=== PATIENT | female | born 1960 | race Caucasian/White ===

== ENCOUNTER 2023-05-15 06:21 | Observation (INO) ==
[~2023-05-15 06:21] MED LIST: Buffered Lidocaine 1% SYRIN 1 ml INTRADERM ONE; Dexamethasone IV 4 MG/ML VIAL 1 ml VIAL ONE; Famotidine IV 10 MG/ML 2 ml VIAL (20 mg) IV ONE; Lactated Ringers 1000 ml BAG 1,000 ML IV SCH; Lidocaine 2% PF 5 ML VIAL ONE; Ondansetron 4 mg VIAL 2 MG/ML 2 ml VIAL ONE; Propofol 10 MG/ML 20 ML BTL ONE
[2023-05-15] MEDS ORDERED: ceFAZolin 2 GM in NS PREMIX 2 GM/100 ML BAG IVPB ONE (06:50)
[2023-05-15] MEDS ORDERED: Famotidine IV 10 MG/ML 2 ml VIAL (20 mg) ONE (06:51)
[2023-05-15 07:49] LABS: Rapid COVID-19 Molecular Undetected (Undetected)
[2023-05-15] MEDS ORDERED: Propofol 10 MG/ML 20 ML BTL ONE (09:04)
[2023-05-15] MEDS ORDERED: Midazolam 2 mg/2 ml VIAL 1 mg/ml 2 ml VIAL (2 mg) ONE (09:05)
[2023-05-15] MEDS ORDERED: Rocuronium 50 mg VIAL 10 mg/ml 5 ml VIAL (50 mg) ONE ×2 (09:05→10:39)
[2023-05-15] MEDS ORDERED: fentaNYL 250 mcg/5 ml 50 MCG/ML 5 ml VIAL (250 MCG) ONE (09:06)
[2023-05-15] MEDS ORDERED: ROPIVACAINE 5 MG/ML 30 ML BTL (0.5%) ONE (09:11)
[2023-05-15] MEDS ORDERED: Acetaminophen IV 1 GM/100ML 1,000 MG/100 ML BAG IV ONE (10:30)
[2023-05-15] MEDS ORDERED: Morphine 2 MG/ML SYRINGE IV PRN (10:42)
[2023-05-15] MEDS ORDERED: Ondansetron ODT 4 mg TAB 4 MG TAB PO PRN (10:42)
[2023-05-15] MEDS ORDERED: Lactulose 30 ml UDC PO PRN (10:42)
[2023-05-15] MEDS ORDERED: Ondansetron 4 mg VIAL 2 MG/ML 2 ml VIAL IV PRN (10:42)
[2023-05-15] MEDS ORDERED: Magnesium Hydroxide LIQ 30 ML UDC PO PRN (10:42)
[2023-05-15] MEDS ORDERED: HYDROmorphone 0.5 MG/0.5 ML SYRINGE ONE ×2 (10:44→11:03)
[2023-05-15] MEDS ORDERED: Naloxone 0.4 mg VIAL 0.4 mg/ml 1 ml VIAL IV PRN (11:21)
[2023-05-15] MEDS ORDERED: fentaNYL 100 mcg/2 ml 50 MCG/ML VIAL ONE ×2 (12:48→13:17)
[2023-05-15] MEDS: fentaNYL 100 mcg/2 ml 50 MCG/ML VIAL IV PRN ×4 (12:49→13:36)
[2023-05-15] MEDS ORDERED: oxyCODONE/Acetamin 5/325 mg TAB ONE (13:17)
[2023-05-15] MEDS ORDERED: HYDROcodone/ACETAMIN 5/325 mg TAB ONE (13:19)
[2023-05-15] MEDS: HYDROcodone/ACETAMIN 5/325 mg TAB PO PRN ×2 (13:20→20:41)
[2023-05-15] MEDS: HYDROmorphone 1 MG/1 ML SYRINGE IV PRN ×2 (13:38→13:39)
[2023-05-15] MEDS ORDERED: HYDROmorphone 1 MG/1 ML SYRINGE ONE (13:38)
[2023-05-15] MEDS: Lactated Ringers 1000 ml BAG 1,000 ML IV SCH (14:15)
[2023-05-15] MEDS: ceFAZolin 1 GM ADVAN 1 GM in NS 0.9% 50 ML 50 ML IVPB SCH (17:24)
[2023-05-15] MEDS: Magnesium Hydroxide LIQ 30 ML UDC PO SCH (22:05)
[2023-05-16] MEDS: Lactated Ringers 1000 ml BAG 1,000 ML IV SCH (01:02)
[2023-05-16] MEDS: HYDROcodone/ACETAMIN 5/325 mg TAB PO PRN ×2 (01:02→08:10)
[2023-05-16] MEDS: ceFAZolin 1 GM ADVAN 1 GM in NS 0.9% 50 ML 50 ML IVPB SCH ×2 (02:36→10:20)
[2023-05-16 07:46] LABS: Hematocrit 30.8 % (35-45); Hemoglobin 10.4 g/dL (11.5-14.3); Mean Platelet Volume 7.7 fL (7.5-11.2); Platelet Count 230 10^3/uL (150-450)
[2023-05-16 07:49] LABS: Calcium 8.7 mg/dL (8.6-10.3); Creatinine, Serum 0.72 mg/dL (0.51-0.95); Potassium 3.9 mmol/L (3.5-5.0); eGFR CKD-EPI 94.5 (>60)
[2023-05-16] MEDS: Magnesium Hydroxide LIQ 30 ML UDC PO SCH (08:09)
[2023-05-16] MEDS ORDERED: Venlafaxine XR 75 mg PO SCH (09:00)
[2023-05-16] MEDS ORDERED: Vitamin THERAPEUTIC TAB PO SCH (09:00)
[2023-05-16] MEDS ORDERED: HYDROcodone/Acetamin 10/325 TAB (NF) PO PRN (11:33)
[2023-05-16 14:39] VITALS: BP 118/62
== END 2023-05-16 17:56 | disposition home or self-care (01) ==
LOC: INTOOBSV 06:21 → AA 06:21 → SSU 10:42
PROVIDERS: ADMIT Orthopaedic Surgery Adult Reconstructive Orthopaedic Surgery; ATTEND Orthopaedic Surgery Adult Reconstructive Orthopaedic Surgery

== ENCOUNTER 2023-06-14 11:11 | Inpatient (IN) ==
[2023-06-14] MEDS ORDERED: cefTRIAXone 2 gm/50 mL D5W 2 GM/50 ML BAG IV ONE (11:32)
[2023-06-14] MEDS ORDERED: Vancomycin 1,500 MG in NS 0.9% 250 ml 250 ML IVPB ONE (11:32)
[2023-06-14] MEDS ORDERED: Magnesium Hydroxide LIQ 30 ML UDC PO PRN (12:39)
[2023-06-14] MEDS ORDERED: Ondansetron ODT 4 mg TAB 4 MG TAB PO PRN (12:39)
[2023-06-14] MEDS ORDERED: Lactulose 30 ml UDC PO PRN (12:39)
[2023-06-14 12:43] LABS: ABS Eosinophils 0.1 10^3/uL (0.0-0.5); ABS Lymphocytes 1.7 10^3/uL (1.0-4.8); ABS Monocytes 0.6 10^3/uL (0.0-0.9); ABS Nucleated RBC 0.01 10^3/ul; Eosinophil % 1.5 %; Hematocrit 33.7 % (35-45); Hemoglobin 11.2 g/dL (11.5-14.3); Lymphocyte % 27.1 %; Mean Corpuscular Hemoglobin 29.1 pg (27-33); Mean Corpuscular Hgb Conc 33.3 g/dL (31-36); Mean Corpuscular Volume 87.5 fL (80-97); Mean Platelet Volume 7.3 fL (7.5-11.2); Nucleated Red Blood Cells % 0.1 /100 WBC (0.0-0.4); Platelet Count 314 10^3/uL (150-450); Red Blood Count 3.86 10^6/uL (3.63-4.92); Red Cell Distribution Width 14.6 % (12-17); White Blood Count 6.4 10^3/uL (3.8-11.8)
[2023-06-14 12:58] LABS: Activated Partial Thrombo Time 35.7 seconds (26.0-38.0); INR 1.14 (0.88-1.18)
[2023-06-14] MEDS ORDERED: Vancomycin per Pharmacy 1 EA NOTE FOLLOW UP SCH (13:00)
[2023-06-14] MEDS ORDERED: Lactated Ringers 1000 ml BAG 1,000 ML IV SCH (13:00)
[2023-06-14] MEDS: Morphine 2 MG/ML SYRINGE IV PRN (13:11)
[2023-06-14] MEDS: Ondansetron 4 mg VIAL 2 MG/ML 2 ml VIAL IV PRN (13:13)
[2023-06-14 13:19] LABS: Albumin 3.9 g/dL (3.2-5.2); Albumin/Globulin Ratio 1.4 (1-3); C Reactive Protein 22.16 mg/L (<8.01); Calcium 9.4 mg/dL (8.6-10.3); Creatinine, Serum 0.81 mg/dL (0.51-0.95); Globulin 2.7 g/dL (2-4); Potassium 4.4 mmol/L (3.5-5.0); Total Bilirubin 0.5 mg/dL (0.2-1.0); Total Protein 6.6 g/dL (6.4-8.9)
[2023-06-14] MEDS ORDERED: Vancomycin 1,750 MG in NS 0.9% 500 ml BAG 500 ML IVPB ONE (13:30)
[2023-06-14] MEDS ORDERED: Rocuronium 50 mg VIAL 10 mg/ml 5 ml VIAL (50 mg) ONE ×2 (15:09→17:42)
[2023-06-14] MEDS ORDERED: Midazolam 2 mg/2 ml VIAL 1 mg/ml 2 ml VIAL (2 mg) ONE (15:09)
[2023-06-14] MEDS ORDERED: Sevoflurane BOTTLE ONE (15:09)
[2023-06-14] MEDS ORDERED: fentaNYL 250 mcg/5 ml 50 MCG/ML 5 ml VIAL (250 MCG) ONE (15:09)
[2023-06-14] MEDS ORDERED: Propofol 10 MG/ML 20 ML BTL ONE ×2 (15:09→17:42)
[2023-06-14] MEDS ORDERED: Lidocaine 2% PF 5 ML VIAL ONE ×2 (15:09→17:42)
[2023-06-14] MEDS ORDERED: HYDROmorphone 1 MG/1 ML SYRINGE IV PRN ×2 (15:19→20:32)
[2023-06-14] MEDS ORDERED: Naloxone 0.4 mg VIAL 0.4 mg/ml 1 ml VIAL IV PRN ×3 (15:19→20:32)
[2023-06-14] MEDS ORDERED: Ondansetron 4 mg VIAL 2 MG/ML 2 ml VIAL IV PRN ×2 (15:19→20:32)
[2023-06-14] MEDS ORDERED: Acetaminophen IV 1 GM/100ML 1,000 MG/100 ML BAG IV PRN ×2 (15:19→20:31)
[2023-06-14 16:24] LABS: Erythrocyte Sed Rate 42 mm/Hr (0-29)
[2023-06-14] MEDS ORDERED: fentaNYL 100 mcg/2 ml 50 MCG/ML VIAL ONE ×6 (16:27→21:39)
[2023-06-14] MEDS: fentaNYL 100 mcg/2 ml 50 MCG/ML VIAL IV PRN ×7 (16:29→21:42)
[2023-06-14] MEDS ORDERED: Glycopyrrolate IV 0.2 MG/ML 1 ML VIAL ONE ×2 (18:11→18:28)
[2023-06-14] MEDS ORDERED: Phenylephrine 40 mcg/mL 10mL (400mcg) SYRINGE ONE (18:11)
[2023-06-14] MEDS ORDERED: Phenylephrine IV 10 MG/ML 1 ml VIAL ONE (18:14)
[2023-06-14] MEDS ORDERED: Ondansetron 4 mg VIAL 2 MG/ML 2 ml VIAL ONE (18:51)
[2023-06-14] MEDS ORDERED: ROPIVACAINE 5 MG/ML 30 ML BTL (0.5%) ONE (19:06)
[2023-06-14] MEDS ORDERED: Clotrimazole 1% CREAM 45 GM TOPICAL SCH (21:00)
[2023-06-14] MEDS ORDERED: Morphine 4 MG/ML VIAL (1 ml) ONE (21:15)
[2023-06-14] MEDS: Morphine 4 MG/ML VIAL (1 ml) IV PRN ×2 (21:16→21:28)
[2023-06-15] MEDS: HYDROcodone/ACETAMIN 5/325 mg TAB PO PRN ×5 (00:24→17:33)
[2023-06-15] MEDS: Magnesium Hydroxide LIQ 30 ML UDC PO SCH ×3 (01:19→21:49)
[2023-06-15] MEDS: Morphine 2 MG/ML SYRINGE IV PRN (01:35)
[2023-06-15] MEDS: Cefepime 2 GM in Dextrose 2 GM/50 ML BAG IV SCH ×3 (01:37→13:34)
[2023-06-15] MEDS ORDERED: Vancomycin 1,500 MG in NS 0.9% 250 ml 250 ML IVPB SCH (02:00)
[2023-06-15] MEDS: Vancomycin 1,500 MG in NS 0.9% 250 ml 250 ML IVPB SCH ×2 (02:21→14:52)
[2023-06-15] MEDS: Venlafaxine XR 75 mg PO SCH (08:52)
[2023-06-15] MEDS: Vitamin THERAPEUTIC TAB PO SCH (08:52)
[2023-06-15] MEDS: Clotrimazole 1% CREAM 30 gm TOPICAL SCH ×2 (09:11→22:01)
[2023-06-16] MEDS: Cefepime 2 GM in Dextrose 2 GM/50 ML BAG IV SCH ×2 (01:08→14:28)
[2023-06-16] MEDS: Vancomycin 1,500 MG in NS 0.9% 250 ml 250 ML IVPB SCH ×2 (01:40→16:51)
[2023-06-16] MEDS: HYDROcodone/ACETAMIN 5/325 mg TAB PO PRN ×3 (07:44→21:06)
[2023-06-16] MEDS: Vitamin THERAPEUTIC TAB PO SCH (07:45)
[2023-06-16] MEDS: Venlafaxine XR 75 mg PO SCH (07:45)
[2023-06-16] MEDS: Magnesium Hydroxide LIQ 30 ML UDC PO SCH ×2 (07:46→21:51)
[2023-06-16] MEDS: Clotrimazole 1% CREAM 30 gm TOPICAL SCH ×2 (11:33→21:06)
[2023-06-16] MEDS ORDERED: Vancomycin Trough Check NOTE FOLLOW UP ONE (13:30)
[2023-06-16 13:54] LABS: Creatinine, Serum 0.78 mg/dL (0.51-0.95); eGFR CKD-EPI 85.8 (>60)
[2023-06-16 14:14] LABS: Vancomycin Trough 16.6 mcg/mL
[2023-06-17] MEDS: Cefepime 2 GM in Dextrose 2 GM/50 ML BAG IV SCH ×2 (01:58→15:30)
[2023-06-17] MEDS: Vancomycin 1,500 MG in NS 0.9% 250 ml 250 ML IVPB SCH ×2 (02:55→16:27)
[2023-06-17] MEDS: Ondansetron 4 mg VIAL 2 MG/ML 2 ml VIAL IV PRN (10:25)
[2023-06-17] MEDS: Morphine 2 MG/ML SYRINGE IV PRN (10:25)
[2023-06-17] MEDS: Magnesium Hydroxide LIQ 30 ML UDC PO SCH ×2 (11:12→20:50)
[2023-06-17] MEDS: Venlafaxine XR 75 mg PO SCH (11:14)
[2023-06-17] MEDS: Vitamin THERAPEUTIC TAB PO SCH (11:15)
[2023-06-17] MEDS: HYDROcodone/ACETAMIN 5/325 mg TAB PO PRN ×3 (11:16→20:49)
[2023-06-17] MEDS: Clotrimazole 1% CREAM 30 gm TOPICAL SCH ×2 (11:18→20:51)
[2023-06-18] MEDS: Cefepime 2 GM in Dextrose 2 GM/50 ML BAG IV SCH ×2 (01:48→13:09)
[2023-06-18] MEDS: HYDROcodone/ACETAMIN 5/325 mg TAB PO PRN ×4 (01:53→19:40)
[2023-06-18] MEDS: Vancomycin 1,500 MG in NS 0.9% 250 ml 250 ML IVPB SCH (02:33)
[2023-06-18] MEDS: Vitamin THERAPEUTIC TAB PO SCH (08:37)
[2023-06-18] MEDS: Magnesium Hydroxide LIQ 30 ML UDC PO SCH ×2 (08:38→08:43)
[2023-06-18] MEDS: Venlafaxine XR 75 mg PO SCH (08:38)
[2023-06-18] MEDS: Clotrimazole 1% CREAM 30 gm TOPICAL SCH ×2 (08:38→21:37)
[2023-06-18] MEDS ORDERED: Magnesium Hydroxide LIQ 30 ML UDC PO PRN (10:59)
[2023-06-18] MEDS ORDERED: Zosyn per Pharmacy NOTE FOLLOW UP SCH (12:00)
[2023-06-18] MEDS ORDERED: ZOSYN 3.375 GM x ONE DOSE over 30 miuntes IV (12:00)
[2023-06-18] MEDS ORDERED: Vancomycin per Pharmacy 1 EA NOTE FOLLOW UP SCH (13:00)
[2023-06-18] MEDS ORDERED: Vancomycin Trough Check NOTE FOLLOW UP ONE (13:30)
[2023-06-18] MEDS: Linezolid 600 MG IVPREMIX(*) 600 MG/300 ML BAG IVPB SCH (13:57)
[2023-06-18 14:12] LABS: Creatinine, Serum 0.78 mg/dL (0.51-0.95); eGFR CKD-EPI 85.8 (>60)
[2023-06-18 14:42] LABS: Vancomycin Trough 19.7 mcg/mL
[2023-06-19] MEDS: HYDROcodone/ACETAMIN 5/325 mg TAB PO PRN ×2 (00:56→08:53)
[2023-06-19] MEDS: Cefepime 2 GM in Dextrose 2 GM/50 ML BAG IV SCH ×2 (01:00→12:17)
[2023-06-19] MEDS: Linezolid 600 MG IVPREMIX(*) 600 MG/300 ML BAG IVPB SCH ×2 (01:40→12:51)
[2023-06-19] MEDS: Venlafaxine XR 75 mg PO SCH (08:52)
[2023-06-19] MEDS: Vitamin THERAPEUTIC TAB PO SCH (08:53)
[2023-06-19] MEDS: Clotrimazole 1% CREAM 30 gm TOPICAL SCH (08:55)
[2023-06-19 13:44] VITALS: BP 111/60
[2023-06-19 14:40] LABS: Rapid COVID-19 Molecular Undetected (Undetected)
== END 2023-06-19 14:39 | disposition swing bed (61) | DRG 468 ==
LOC: EDACCT# → ED 11:11 → SSU 12:39 → EDHOLD 12:39 → OR 12:39 → SSU 12:40 → OR 20:31
PROVIDERS: ADMIT Orthopaedic Surgery Adult Reconstructive Orthopaedic Surgery; ATTEND Orthopaedic Surgery Adult Reconstructive Orthopaedic Surgery

== ENCOUNTER 2023-07-11 15:05 | Inpatient (IN) ==
[2023-07-11] MEDS ORDERED: HYDROcodone/ACETAMIN 5/325 mg TAB PO PRN (17:14)
[2023-07-11] MEDS ORDERED: Cefepime 2 GM in Dextrose 2 GM/50 ML BAG IV SCH (18:00)
[2023-07-11] MEDS ORDERED: Linezolid 600 MG IVPREMIX(*) 600 MG/300 ML BAG IVPB SCH (18:30)
[2023-07-11] MEDS: Clotrimazole 1% CREAM 30 gm TOPICAL SCH (20:54)
[2023-07-11] MEDS: Nystatin TOP POWDER 15 GM BTL TOPICAL SCH (20:55)
[2023-07-11] MEDS: Cefepime 2 GM in Dextrose 2 GM/50 ML BAG IV SCH (20:59)
[2023-07-11] MEDS: Linezolid 600 MG IVPREMIX(*) 600 MG/300 ML BAG IVPB SCH (21:41)
[2023-07-11] MEDS: Lactated Ringers 1000 ml BAG 1,000 ML IV SCH (23:15)
[2023-07-12] MEDS ORDERED: Magnesium Sulfate 2 gm BAG 2 GM/50 ML BAG IVPB ONE (03:02)
[2023-07-12 03:44] LABS: ABS Eosinophils 0.1 10^3/uL (0.0-0.5); ABS Lymphocytes 1.4 10^3/uL (1.0-4.8); ABS Monocytes 0.4 10^3/uL (0.0-0.9); ABS Neutrophils 1.7 10^3/uL (1.5-7.6); ABS Nucleated RBC 0.01 10^3/ul; Hematocrit 26.6 % (35-45); Lymphocyte % 38.9 %; Mean Corpuscular Hemoglobin 28.7 pg (27-33); Mean Corpuscular Hgb Conc 33.8 g/dL (31-36); Mean Platelet Volume 7.1 fL (7.5-11.2); Nucleated Red Blood Cells % 0.2 /100 WBC (0.0-0.4); Platelet Count 165 10^3/uL (150-450); Red Blood Count 3.13 10^6/uL (3.63-4.92); Red Cell Distribution Width 16.1 % (12-17); White Blood Count 3.7 10^3/uL (3.8-11.8)
[2023-07-12 03:50] LABS: INR 1.13 (0.83-1.13)
[2023-07-12 04:01] LABS: Albumin 3.5 g/dL (3.2-5.2); Albumin/Globulin Ratio 1.5 (1-3); Calcium 8.8 mg/dL (8.6-10.3); Creatinine, Serum 0.72 mg/dL (0.51-0.95); Globulin 2.3 g/dL (2-4); Magnesium 2.1 mg/dL (1.9-2.7); Potassium 3.5 mmol/L (3.5-5.0); Total Bilirubin 0.4 mg/dL (0.2-1.0); Total Protein 5.8 g/dL (6.4-8.9); eGFR CKD-EPI 94.5 (>60)
[2023-07-12] MEDS ORDERED: Potassium EFFERVES 25 meq TAB PO ONE (07:15)
[2023-07-12] MEDS: HYDROcodone/ACETAMIN 5/325 mg TAB PO PRN ×3 (07:59→18:04)
[2023-07-12] MEDS: Venlafaxine XR 75 mg PO SCH (07:59)
[2023-07-12] MEDS: Clotrimazole 1% CREAM 30 gm TOPICAL SCH ×2 (08:00→21:18)
[2023-07-12] MEDS: Nystatin TOP POWDER 15 GM BTL TOPICAL SCH ×2 (08:00→21:18)
[2023-07-12] MEDS: Cefepime 2 GM in Dextrose 2 GM/50 ML BAG IV SCH ×2 (08:07→21:23)
[2023-07-12] MEDS: Linezolid 600 MG IVPREMIX(*) 600 MG/300 ML BAG IVPB SCH ×2 (08:52→22:14)
[2023-07-12] MEDS: Potassium Chlor 20 meq TAB.ER PO SCH (08:53)
[2023-07-12] MEDS: Lactated Ringers 1000 ml BAG 1,000 ML IV SCH ×2 (10:13→18:06)
[2023-07-12 11:51] LABS: C Reactive Protein 5.89 mg/L (<8.01)
[2023-07-12 15:44] LABS: Body Fluid Appearance Bloody; Body Fluid Color Red; Body Fluid Source Synovial Fluid
[2023-07-12 16:26] LABS: Body Fluid WBC 301 /mcL
[2023-07-12 17:18] LABS: Body Fluid Mono 29 %; Body Fluid Other Cells 2; Body Fluid Total Cells Counted 200
[2023-07-12] MEDS ORDERED: HYDROcodone/ACETAMIN 5/325 mg TAB PO PRN (22:54)
[2023-07-13] MEDS: Lactated Ringers 1000 ml BAG 1,000 ML IV SCH ×2 (03:31→13:23)
[2023-07-13 06:53] LABS: Hematocrit 24.5 % (35-45); Hemoglobin 8.2 g/dL (11.5-14.3); Mean Corpuscular Hemoglobin 28.7 pg (27-33); Mean Corpuscular Hgb Conc 33.6 g/dL (31-36); Mean Corpuscular Volume 85.4 fL (80-97); Mean Platelet Volume 7.3 fL (7.5-11.2); Platelet Count 142 10^3/uL (150-450); Red Blood Count 2.87 10^6/uL (3.63-4.92); Red Cell Distribution Width 16.2 % (12-17); White Blood Count 3.3 10^3/uL (3.8-11.8)
[2023-07-13 07:08] LABS: Albumin 3.4 g/dL (3.2-5.2); Albumin/Globulin Ratio 1.5 (1-3); Creatinine, Serum 0.7 mg/dL (0.51-0.95); Globulin 2.2 g/dL (2-4); Potassium 4.2 mmol/L (3.5-5.0); Total Bilirubin 0.5 mg/dL (0.2-1.0); Total Protein 5.6 g/dL (6.4-8.9); eGFR CKD-EPI 97.7 (>60)
[2023-07-13] MEDS: Clotrimazole 1% CREAM 30 gm TOPICAL SCH ×2 (11:26→20:10)
[2023-07-13] MEDS: Nystatin TOP POWDER 15 GM BTL TOPICAL SCH ×2 (11:27→20:10)
[2023-07-13] MEDS: Potassium Chlor 20 meq TAB.ER PO SCH (11:27)
[2023-07-13] MEDS: Venlafaxine XR 75 mg PO SCH (11:27)
[2023-07-13] MEDS: Linezolid 600 MG IVPREMIX(*) 600 MG/300 ML BAG IVPB SCH ×2 (11:29→20:58)
[2023-07-13] MEDS: Cefepime 2 GM in Dextrose 2 GM/50 ML BAG IV SCH ×2 (11:29→20:07)
[2023-07-13 11:58] LABS: TSH Ultra Thyroid Stim Horm 1.87 mcIU/mL (0.34-5.60)
[2023-07-13 12:03] LABS: Free T4 0.74 ng/dL (0.61-1.12)
[2023-07-13] MEDS ORDERED: Lactated Ringers 1000 ml BAG 1,000 ML IV SCH (14:01)
[2023-07-13] MEDS: Morphine 2 MG/ML SYRINGE IV PRN (20:57)
[2023-07-14 06:52] LABS: ABS Eosinophils 0.1 10^3/uL (0.0-0.5); ABS Lymphocytes 1.1 10^3/uL (1.0-4.8); ABS Monocytes 0.4 10^3/uL (0.0-0.9); Eosinophil % 3.7 %; Hemoglobin 8.8 g/dL (11.5-14.3); Lymphocyte % 29.5 %; Mean Corpuscular Hemoglobin 28.7 pg (27-33); Mean Corpuscular Hgb Conc 33.8 g/dL (31-36); Mean Corpuscular Volume 84.8 fL (80-97); Mean Platelet Volume 7.5 fL (7.5-11.2); Nucleated Red Blood Cells % 0.1 /100 WBC (0.0-0.4); Platelet Count 136 10^3/uL (150-450); Red Blood Count 3.06 10^6/uL (3.63-4.92); Red Cell Distribution Width 16.3 % (12-17); White Blood Count 3.6 10^3/uL (3.8-11.8)
[2023-07-14 07:03] LABS: Albumin 3.5 g/dL (3.2-5.2); Albumin/Globulin Ratio 1.5 (1-3); Creatinine, Serum 0.71 mg/dL (0.51-0.95); Globulin 2.3 g/dL (2-4); Potassium 4.1 mmol/L (3.5-5.0); Total Bilirubin 0.5 mg/dL (0.2-1.0); Total Protein 5.8 g/dL (6.4-8.9); eGFR CKD-EPI 96.1 (>60)
[2023-07-14] MEDS: Morphine 2 MG/ML SYRINGE IV PRN ×2 (07:04→20:53)
[2023-07-14] MEDS: Linezolid 600 MG IVPREMIX(*) 600 MG/300 ML BAG IVPB SCH ×2 (09:25→20:54)
[2023-07-14] MEDS: Venlafaxine XR 75 mg PO SCH ×2 (09:31→11:21)
[2023-07-14] MEDS: Cefepime 2 GM in Dextrose 2 GM/50 ML BAG IV SCH ×2 (11:11→19:52)
[2023-07-14] MEDS: HYDROcodone/ACETAMIN 5/325 mg TAB PO PRN (13:47)
[2023-07-14] MEDS: Nystatin TOP POWDER 15 GM BTL TOPICAL SCH ×2 (15:21→20:04)
[2023-07-14] MEDS: Clotrimazole 1% CREAM 30 gm TOPICAL SCH ×2 (15:22→20:04)
[2023-07-15 02:11] LABS: Creatinine, Serum 0.76 mg/dL (0.51-0.95); eGFR CKD-EPI 88.5 (>60)
[2023-07-15] MEDS: Morphine 2 MG/ML SYRINGE IV PRN (03:09)
[2023-07-15 06:27] LABS: ABS Eosinophils 0.2 10^3/uL (0.0-0.5); ABS Lymphocytes 1.6 10^3/uL (1.0-4.8); ABS Monocytes 0.4 10^3/uL (0.0-0.9); ABS Neutrophils 2.2 10^3/uL (1.5-7.6); Eosinophil % 3.4 %; Hematocrit 27.4 % (35-45); Hemoglobin 9.3 g/dL (11.5-14.3); Lymphocyte % 36.1 %; Mean Corpuscular Hemoglobin 28.7 pg (27-33); Mean Corpuscular Hgb Conc 33.9 g/dL (31-36); Mean Corpuscular Volume 84.7 fL (80-97); Mean Platelet Volume 7.6 fL (7.5-11.2); Nucleated Red Blood Cells % 0.1 /100 WBC (0.0-0.4); Platelet Count 149 10^3/uL (150-450); Red Blood Count 3.24 10^6/uL (3.63-4.92); Red Cell Distribution Width 16.1 % (12-17); White Blood Count 4.5 10^3/uL (3.8-11.8)
[2023-07-15 06:54] LABS: Calcium 9.3 mg/dL (8.6-10.3); Creatinine, Serum 0.67 mg/dL (0.51-0.95); Potassium 3.9 mmol/L (3.5-5.0); eGFR CKD-EPI 98.8 (>60)
[2023-07-15] MEDS: Linezolid 600 MG IVPREMIX(*) 600 MG/300 ML BAG IVPB SCH ×2 (08:17→22:30)
[2023-07-15] MEDS: Cefepime 2 GM in Dextrose 2 GM/50 ML BAG IV SCH ×2 (10:36→21:16)
[2023-07-15] MEDS: HYDROcodone/ACETAMIN 5/325 mg TAB PO PRN ×3 (10:42→22:37)
[2023-07-15 11:53] LABS: High Sensitivity Troponin 1 Hr 3 pg/mL (<15)
[2023-07-15 13:51] LABS: High Sensitivity Troponin 3 Hr < 3 pg/mL (<15)
[2023-07-15] MEDS: Nystatin TOP POWDER 15 GM BTL TOPICAL SCH ×2 (18:01→21:49)
[2023-07-15] MEDS: Clotrimazole 1% CREAM 30 gm TOPICAL SCH ×3 (18:01→21:47)
[2023-07-16 07:56] LABS: ABS Eosinophils 0.1 10^3/uL (0.0-0.5); ABS Lymphocytes 1.3 10^3/uL (1.0-4.8); ABS Monocytes 0.5 10^3/uL (0.0-0.9); ABS Neutrophils 2.4 10^3/uL (1.5-7.6); ABS Nucleated RBC 0.01 10^3/ul; Hematocrit 27.7 % (35-45); Hemoglobin 9.4 g/dL (11.5-14.3); Lymphocyte % 29.9 %; Mean Corpuscular Hemoglobin 28.7 pg (27-33); Mean Corpuscular Hgb Conc 33.9 g/dL (31-36); Mean Corpuscular Volume 84.8 fL (80-97); Mean Platelet Volume 7.6 fL (7.5-11.2); Nucleated Red Blood Cells % 0.2 /100 WBC (0.0-0.4); Platelet Count 149 10^3/uL (150-450); Red Blood Count 3.26 10^6/uL (3.63-4.92); Red Cell Distribution Width 16.3 % (12-17); White Blood Count 4.3 10^3/uL (3.8-11.8)
[2023-07-16 08:08] LABS: Albumin 3.9 g/dL (3.2-5.2); Albumin/Globulin Ratio 1.6 (1-3); Creatinine, Serum 0.71 mg/dL (0.51-0.95); Globulin 2.4 g/dL (2-4); Potassium 3.8 mmol/L (3.5-5.0); Total Bilirubin 0.5 mg/dL (0.2-1.0); Total Protein 6.3 g/dL (6.4-8.9); eGFR CKD-EPI 96.1 (>60)
[2023-07-16] MEDS: Linezolid 600 MG IVPREMIX(*) 600 MG/300 ML BAG IVPB SCH (09:33)
[2023-07-16] MEDS ORDERED: Regadenoson 0.4 MG/5 ML SYRINGE ONE (10:12)
[2023-07-16] MEDS: Cefepime 2 GM in Dextrose 2 GM/50 ML BAG IV SCH (12:43)
[2023-07-16 12:52] VITALS: BP 128/52
[2023-07-16] MEDS: Nystatin TOP POWDER 15 GM BTL TOPICAL SCH (14:00)
[2023-07-16] MEDS: Clotrimazole 1% CREAM 30 gm TOPICAL SCH (17:19)
[2023-07-17 14:55] LABS: Anaplasma phagocytophilum Negative (Negative); B. miyamotoi PCR, B Negative (Negative); Babesia divergens/MO-1 Negative (Negative); Babesia ducani Negative (Negative); Ehrlichia chaffeensis Negative (Negative); Ehrlichia ewingii/canis Negative (Negative); Ehrlichia muris eauclairensis Negative (Negative)
== END 2023-07-16 16:30 | disposition home or self-care (01) | DRG 560 ==
LOC: ED 15:05 → EDHOLD 17:06 → SUATTDRO 17:06 → MEDTELE 18:05
PROVIDERS: ADMIT Internal Medicine; ATTEND Internal Medicine

== ENCOUNTER 2024-12-04 07:40 | Observation (INO) ==
[2024-12-04] MEDS ORDERED: Chlorhexidine MOUTHWASH 0.12% 15 ML UDC ONE (08:18)
[2024-12-04] MEDS ORDERED: ceFAZolin 2 GM PREMIX 2 GM/50 ML BAG ONE (08:18)
[2024-12-04] MEDS ORDERED: Famotidine IV 10 MG/ML 2 ml VIAL (20 mg) ONE (08:39)
[2024-12-04] MEDS ORDERED: Propofol 10 MG/ML 20 ML BTL ONE (08:39)
[2024-12-04] MEDS ORDERED: Lidocaine 2% PF 5 ML VIAL ONE (08:39)
[2024-12-04] MEDS ORDERED: Ondansetron 4 mg VIAL 2 MG/ML 2 ml VIAL ONE ×2 (08:39→11:03)
[2024-12-04] MEDS ORDERED: Dexamethasone IV 4 MG/ML VIAL 1 ml VIAL ONE ×2 (08:39)
[2024-12-04] MEDS ORDERED: Midazolam 2 mg/2 ml VIAL 1 mg/ml 2 ml VIAL (2 mg) ONE (08:40)
[2024-12-04] MEDS ORDERED: fentaNYL 100 mcg/2 ml 50 MCG/ML VIAL ONE ×3 (08:40→11:42)
[2024-12-04] MEDS ORDERED: Rocuronium 50 mg VIAL 10 mg/ml 5 ml VIAL (50 mg) ONE (08:40)
[2024-12-04] MEDS: Famotidine IV 10 MG/ML 2 ml VIAL (20 mg) IV ONE (08:41)
[2024-12-04] MEDS: Dexamethasone IV 4 MG/ML VIAL 1 ml VIAL IV SLOW PU ONE (08:41)
[2024-12-04 08:42] LABS: Rapid COVID-19 Molecular Undetected (Undetected)
[2024-12-04] MEDS: Lactated Ringers 1000 ml BAG 1,000 ML IV SCH ×2 (08:42→14:09)
[2024-12-04 09:01] LABS: Hematocrit 42.1 % (35-45); Hemoglobin 14.5 g/dL (11.5-14.3); Mean Corpuscular Hemoglobin 33.6 pg (27-33); Mean Corpuscular Hgb Conc 34.4 g/dL (31-36); Mean Corpuscular Volume 97.5 fL (80-97); Mean Platelet Volume 7.4 fL (7.5-11.2); Platelet Count 299 10^3/uL (150-450); Red Blood Count 4.32 10^6/uL (3.63-4.92); Red Cell Distribution Width 14.6 % (12-17); White Blood Count 6.6 10^3/uL (3.8-11.8)
[2024-12-04] MEDS ORDERED: ceFAZolin VIAL VIAL ONE (09:15)
[2024-12-04] MEDS ORDERED: Lidocaine 1% w EPI 1:100,000 MDV 50 ML VIAL ONE (09:15)
[2024-12-04 09:20] LABS: Albumin 4.1 g/dL (3.5-5.7); Albumin/Globulin Ratio 1.8 (1-3); Calcium 9.4 mg/dL (8.6-10.3); Creatinine, Serum 0.84 mg/dL (0.51-0.95); Globulin 2.3 g/dL (2-4); Potassium 3.8 mmol/L (3.5-5.0); Total Bilirubin 0.8 mg/dL (0.2-1.0); Total Protein 6.4 g/dL (6.4-8.9)
[2024-12-04] MEDS ORDERED: Phenylephrine 40 mcg/mL 10mL (400mcg) SYRINGE ONE (10:54)
[2024-12-04] MEDS ORDERED: Calcium Carb (TUMS) 500 mg CHEW TAB PO PRN (11:23)
[2024-12-04] MEDS ORDERED: Benzocaine/Menthol LOZ MT PRN (11:23)
[2024-12-04] MEDS ORDERED: Senna TAB 8.6 mg TAB PO PRN (11:23)
[2024-12-04] MEDS ORDERED: Dextran 70/Hypromellose Tears Eye Drops 15 ml BTL (for Artificials Tears) BOTH EYES PRN (11:23)
[2024-12-04] MEDS ORDERED: Phenol 1.4% Throat Spray BTL MT PRN (11:23)
[2024-12-04] MEDS ORDERED: Ondansetron 4 mg VIAL 2 MG/ML 2 ml VIAL IV PRN (11:23)
[2024-12-04] MEDS: fentaNYL 100 mcg/2 ml 50 MCG/ML VIAL IV PRN (11:44)
[2024-12-04] MEDS ORDERED: Naloxone 0.4 mg VIAL 0.4 mg/ml 1 ml VIAL IV PRN (11:45)
[2024-12-04] MEDS ORDERED: Morphine 4 MG/ML VIAL (1 ml) ONE (12:47)
[2024-12-04] MEDS: Morphine 4 MG/ML VIAL (1 ml) IV PRN (12:49)
[2024-12-04] MEDS: Buffered Lidocaine 1% SYRIN 1 ml INTRADERM ONE (14:04)
[2024-12-04] MEDS: HYDROcodone/ACETAMIN 5/325 mg TAB PO PRN (16:14)
[2024-12-05] MEDS: Morphine 2 MG/ML SYRINGE IV PRN (03:17)
[2024-12-05] MEDS: Influenza Vaccine *TRI* 2024-25* 0.5 ML SYRINGE IM ONE (09:09)
[2024-12-05 10:02] VITALS: BP 109/61
[2024-12-05] MEDS: HYDROcodone/ACETAMIN 5/325 mg TAB PO PRN (13:45)
== END 2024-12-05 14:55 | disposition home or self-care (01) ==
LOC: OR 07:40 → SSU 07:40
PROVIDERS: ADMIT Neurological Surgery; ATTEND Neurological Surgery